=== PATIENT | male | born 1985 | race Caucasian/White ===

== ENCOUNTER 2019-05-13 21:12 | Emergency (ER) | payer OTHER ==
[~2019-05-13] VITALS: Ht 188 cm; Wt 104.3 kg
[2019-05-13] MEDS ORDERED: AUGMENTIN 875-1 EACH PO (21:42)
[2019-05-13 23:40] VITALS: BP 137/91
== END 2019-05-13 23:42 | disposition home or self-care (01) ==
LOC: ER 21:12
DX: S60.311A Abrasion of right thumb, initial encounter (principal); F17.210 Nicotine dependence, cigarettes, uncomplicated; Z23 Encounter for immunization; W55.03XA Scratched by cat, initial encounter; Y93.89 Activity, other specified; Y92.89 Other specified places as the place of occurrence of the external cause; Y99.8 Other external cause status

== ENCOUNTER 2019-05-16 17:16 | Emergency (ER) | payer OTHER ==
[~2019-05-16] VITALS: Ht 185.4 cm; Wt 99.8 kg
[~2019-05-16 17:16] MED LIST: AUGMENTIN 875-1 EACH PO
[2019-05-16 17:42] VITALS: BP 142/81
== END 2019-05-16 19:30 | disposition home or self-care (01) ==
LOC: ER 17:16
DX: S60.311A Abrasion of right thumb, initial encounter (principal); F17.210 Nicotine dependence, cigarettes, uncomplicated; Z23 Encounter for immunization; W55.03XA Scratched by cat, initial encounter; Y92.89 Other specified places as the place of occurrence of the external cause; Y93.89 Activity, other specified; Y99.8 Other external cause status

== ENCOUNTER 2019-05-20 12:03 | Emergency (ER) | payer OTHER ==
[~2019-05-20] VITALS: Ht 185.4 cm; Wt 99.8 kg
[2019-05-20 14:52] VITALS: BP 111/77
== END 2019-05-20 15:00 | disposition home or self-care (01) ==
LOC: ER 12:03
DX: S60.311A Abrasion of right thumb, initial encounter (principal); Z23 Encounter for immunization; F17.210 Nicotine dependence, cigarettes, uncomplicated; W55.01XA Bitten by cat, initial encounter; Y93.89 Activity, other specified; Y92.89 Other specified places as the place of occurrence of the external cause; Y99.8 Other external cause status

== ENCOUNTER 2019-05-27 09:11 | Emergency (ER) | payer OTHER ==
[~2019-05-27] VITALS: Ht 188 cm; Wt 104.3 kg
[2019-05-27 09:50] VITALS: BP 125/74
== END 2019-05-27 09:51 | disposition home or self-care (01) ==
LOC: ER 09:11
DX: Z23 Encounter for immunization (principal); F17.210 Nicotine dependence, cigarettes, uncomplicated